=== PATIENT | male | born 1970 | race Caucasian/White ===

== ENCOUNTER 2019-03-19 00:14 | Emergency (ER) | payer OTHER ==
[2019-03-19] MEDS ORDERED: LIDOCAINE 1% MPF 5 ML VIAL ONE (01:24)
[2019-03-19] MEDS ORDERED: TETANUS & DIPHTHERIA TOX,ADULT 0.5 ML VIAL ONE (01:24)
--- NOTE | 2019-03-19 01:58 | ER ---
Nurse's Notes [facility] Name: Rodney Galvan Age: 48 yrs Sex: Male : 1970 Arrival Date: 03/19/2019 Time: 00:19 Bed 20 Private MD: Diagnosis: Laceration without foreign body of left hand Presentation: 03/19 00:35 Presenting complaint: Patient states: I was preparing dinner, cutting the chicken and I rv cut my hand. it happened at 1030pm but it won't stop bleeding. I take Brillinta. Transition of care: patient was not received from another setting of care. Onset of symptoms was March 18, 2019 at 22:30. Risk Assessment: Do you want to hurt yourself or someone else? Patient reports no desire to harm self or others. Initial Sepsis Screen: Does the patient meet any 2 criteria? No. Patient's initial sepsis screen is negative. Does the patient have a suspected source of infection? No. Patient's initial sepsis screen is negative. Care prior to arrival: None. 00:35 Method Of Arrival: Ambulatory rv 00:35 Acuity: MELISSA 3 rv Historical: - Allergies: 00:38 No Known Allergies; rv - Home Meds: 00:38 BRILINTA oral oral [Active]; rv - PMHx: 00:38 Hypertension; rv - PSHx: 00:38 cardiac stent; rv - Immunization history:: Adult Immunizations up to date, Last tetanus immunization: < 10 years ago. - Social history:: Smoking status: Patient/guardian denies using tobacco, the patient reports quitting approximately . years ago. - Ebola Screening: : No symptoms or risks identified at this time. Screenin:40 Abuse screen: Denies threats or abuse. Denies injuries from another. Nutritional rv screening: No deficits noted. Tuberculosis screening: No symptoms or risk factors identified. Fall Risk None identified. Assessment: 00:39 General: Appears in no apparent distress. Behavior is calm. Pain: Complains of pain in rv left hand. Neuro: Level of Consciousness is awake, alert, obeys commands, Oriented to person, place, time, situation. Cardiovascular: Patient's skin is warm and dry. Derm: Skin is intact. Injury Description: Laceration sustained to palmar aspect of proximal phalanx of left thumb is clean, superficial, 0.5 to 2.5 cm long, bleeding profusely. 02:06 Reassessment: Patient appears in no apparent distress at this time. No changes from previously documented assessment. Patient and/or family updated on plan of care and expected duration. Pain level reassessed. Patient is alert, oriented x 3, equal unlabored respirations, skin warm/dry/pink. Vital Signs: 00:36 BP 135 / 83; Pulse 65; Resp 17; Temp 98.1; Pulse Ox 100% ; Weight 92.99 kg; Height 5 rv ft. 9 in. (175.26 cm); 02:09 BP 126 / 87; Pulse 67; Resp 18; Pulse Ox 99% ; wh 00:36 Body Mass Index 30.27 (92.99 kg, 175.26 cm) rv ED Course: 00:19 Patient arrived in ED. ag3 00:24 Gus Reid, ANGELA is PHCP. pm1 00:24 Suleiman Fontaine MD is Attending Physician. pm1 00:36 Triage completed. rv 00:41 Patient has correct armband on for positive identification. Pulse ox on. NIBP on. rv 00:41 Patient placed in the treatment room, on a stretcher, on pulse oximetry, Patient rv notified of wait time. Arm band placed on. Pressure dressing applied. Ice pack applied. 00:57 Damari Redding is Primary Nurse. 01:30 Assist provider with laceration repair on palmar aspect of proximal phalanx of left thumb that was 2.5 cm. or less using sutures. Set up tray. Performed by Gus Reid NP Dressed with 4X4s, Neosporin, Patient tolerated well. Patient did not have IV access during this emergency room visit. Administered Medications: 01:31 Drug: Lidocaine (1 %) 5 ml {Note: Administered by Gus MILLER.} Volume: 5 ml; Route: wh Infiltration; 02:10 Follow up: Response: No adverse reaction 01:32 Drug: Tetanus-Diphtheria Toxoid Adult 0.5 ml {Pediatric Allergist: [employer]. Exp: 08/30/2020. Lot #: [id number]. } Route: IM; Site: right deltoid; 02:10 Follow up: Response: No adverse reaction Outcome: 01:45 Discharge ordered by . pm1 02:09 Discharged to home ambulatory, with family. 02:09 Condition: stable 02:09 Discharge instructions given to patient, family, Instructed on discharge instructions, follow up and referral plans. wound care, Demonstrated understanding of instructions, follow-up care, wound care. 02:10 Patient left the ED. Signatures: Gus Reid NP CELL LEAD pm1 Damari Redding Vidal Orozco RN RN rv Oracio, Noni ag3 Corrections: (The following items were deleted from the chart) 00:36 00:35 Acuity: MELISSA 4 rv rv
--- NOTE | 2019-03-19 01:59 | EDPHYS ---
Physician Documentation [facility] Name: Rodney Galvan Age: 48 yrs Sex: Male : 1970 Arrival Date: 03/19/2019 Time: 00:19 Bed 20 Private MD: ED Physician Suleiman Fontaine HPI: 03/19 00:44 This 48 yrs old Male presents to ER via Ambulatory with complaints of pm1 LACERATION TO FINGER. 00:44 The patient or guardian reports a laceration, simple. The complaints affect the lateral pm1 aspect of left hand. Context: The problem was sustained at home, resulted from cutting rib roast and accidentally cut his hand. Patient takes brillinta and has had difficulty with stopping the bleeding for the past two hours. Onset: The symptoms/episode began/occurred 2 hour(s) ago. Associated signs and symptoms: Pertinent negatives: cyanosis distally, decreased sensation distally, numbness distally, tingling distally. The patient has not recently seen a physician, has an appointment scheduled, carpal tunnel surgery on left hand on Monday. Historical: - Allergies: 00:38 No Known Allergies; rv - Home Meds: 00:38 BRILINTA oral oral [Active]; rv - PMHx: 00:38 Hypertension; rv - PSHx: 00:38 cardiac stent; rv - Immunization history:: Adult Immunizations up to date, Last tetanus immunization: < 10 years ago. - Social history:: Smoking status: Patient/guardian denies using tobacco, the patient reports quitting approximately . years ago. - Ebola Screening: : No symptoms or risks identified at this time. ROS: 00:44 Constitutional: Negative for fever, chills, and weight loss, Cardiovascular: Negative pm1 for chest pain, palpitations, and edema, Respiratory: Negative for shortness of breath, cough, wheezing, and pleuritic chest pain, Back: Negative for injury and pain, MS/Extremity: Negative for injury and deformity. 00:44 Skin: Positive for laceration(s), of the lateral aspect of left hand. 00:44 All other systems are negative. Exam: 01:43 Constitutional: This is a well developed, well nourished patient who is awake, alert, pm1 and in no acute distress. Head/Face: Normocephalic, atraumatic. Neck: Trachea midline, no thyromegaly or masses palpated, and no cervical lymphadenopathy. Supple, full range of motion without nuchal rigidity, or vertebral point tenderness. No Meningismus. Chest/axilla: Normal chest wall appearance and motion. Nontender with no deformity. No lesions are appreciated. Cardiovascular: Regular rate and rhythm with a normal S1 and S2. No gallops, murmurs, or rubs. Normal PMI, no JVD. No pulse deficits. Respiratory: Lungs have equal breath sounds bilaterally, clear to auscultation and percussion. No rales, rhonchi or wheezes noted. No increased work of breathing, no retractions or nasal flaring. Back: No spinal tenderness. No costovertebral tenderness. Full range of motion. 01:43 Skin: Appearance: normal except for affected area, injury, laceration(s), the wound is approximately 1.5 cm(s), with a depth of 0.5 cm(s), of the lateral aspect of left hand. 01:43 Neuro: Orientation: is normal, Motor: is normal, moves all fours. Vital Signs: 00:36 BP 135 / 83; Pulse 65; Resp 17; Temp 98.1; Pulse Ox 100% ; Weight 92.99 kg; Height 5 rv ft. 9 in. (175.26 cm); 02:09 BP 126 / 87; Pulse 67; Resp 18; Pulse Ox 99% ; wh 00:36 Body Mass Index 30.27 (92.99 kg, 175.26 cm) rv Laceration: 01:42 Wound Repair of 1.5cm ( 0.6in ) subcutaneous laceration to lateral aspect of left hand. pm1 Linear shaped.. Distal neuro/vascular/tendon intact. Anesthesia: Local anesthetic administered with 2 mls of 1% lidocaine. Wound prep: Extensive cleansing with hibiclenz by md, Wound irrigation with saline by md, Wound explored extensively, Copious irrigation. Skin closed with 4 4-0 Prolene using simple sutures and sterile technique. Dressed with Neosporin, 4x4's. Patient tolerated well. MDM: 00:39 Patient medically screened. pm1 01:44 Data reviewed: vital signs. Data interpreted: Pulse oximetry: on room air is 100 %. pm1 Interpretation: normal. Counseling: I had a detailed discussion with the patient and/or guardian regarding: the historical points, exam findings, and any diagnostic results supporting the discharge/admit diagnosis, the need for outpatient follow up, to return to the emergency department if symptoms worsen or persist or if there are any questions or concerns that arise at home. 03/19 00:44 Order name: Prolene, Sutures; Complete Time: 01:32 pm1 03/19 00:44 Order name: Dressing - Wound; Complete Time: :33 pm1 03/19 00:44 Order name: Gloves, Sterile; Complete Time: :33 pm1 03/19 00:44 Order name: Setup Suture Tray; Complete Time: : pm1 Administered Medications: 01:31 Drug: Lidocaine (1 %) 5 ml {Note: Administered by Gus MILLER.} Volume: 5 ml; Route: wh Infiltration; 02:10 Follow up: Response: No adverse reaction 01:32 Drug: Tetanus-Diphtheria Toxoid Adult 0.5 ml {Munitions Handler Supervisor: [employer]. Exp: 08/30/2020. Lot #: [id number]. } Route: IM; Site: right deltoid; 02:10 Follow up: Response: No adverse reaction Disposition: 03/19/19 01:45 Discharged to Home. Impression: Laceration without foreign body of left hand. - Condition is Stable. - Discharge Instructions: Laceration Care, Adult. - Medication Reconciliation Form, Thank You Letter, Antibiotic Education, Prescription Opioid Use form. - Follow up: Emergency Department; When: As needed; Reason: Worsening of condition. Follow up: Private Physician; When: 2 - 3 days; Reason: Recheck today's complaints, Continuance of care, Re-evaluation by your physician. - Problem is new. - Symptoms have improved. Addendum: 03/20/2019 18:39 Co-signature as Attending Physician, Suleiman Fontaine MD I agree with the assessment and c collins plan of care. Signatures: Suleiman Fontaine MD MD cha Marinas, Patrick, NP SEWING ROOM SUPERVISOR pm1 Damari Redding Ronaldo RN RN rv Corrections: (The following items were deleted from the chart) 03/19 02:10 01:45 03/19/2019 01:45 Discharged to Home. Impression: Laceration without foreign body wh of left hand. Condition is Stable. Forms are Medication Reconciliation Form, Thank You Letter, Antibiotic Education, Prescription Opioid Use. Follow up: Emergency Department; When: As needed; Reason: Worsening of condition. Follow up: Private Physician; When: 2 - 3 days; Reason: Recheck today's complaints, Continuance of care, Re-evaluation by your physician. Problem is new. Symptoms have improved. pm1
[2019-03-19 04:10] VITALS: BP 126/87; O2SAT 99
== END 2019-03-19 02:10 | disposition home or self-care (01) ==
LOC: ER 00:14
PROC: 0JQK0ZZ Repair Left Hand Subcutaneous Tissue and Fascia, Open Approach (ICD-10-PCS; principal; 2019-03-19)
DX: S61.412A Laceration without foreign body of left hand, initial encounter (principal); W45.8XXA Other foreign body or object entering through skin, initial encounter; Y93.89 Activity, other specified; Y92.009 Unspecified place in unspecified non-institutional (private) residence as the place of occurrence of the external cause; Z23 Encounter for immunization; I10 Essential (primary) hypertension; Z95.818 Presence of other cardiac implants and grafts
CPT/HCPCS: 90471; 90714; 99284